=== PATIENT | male | born 1945 ===

== ENCOUNTER → 2018-04-18 | Outpatient (REF) | payer MEDICARE, OTHER ==
[2018-04-18 18:55] LABS: TOTAL PROTEIN,RANDOM URINE 127.3 MG/DL (0.0-12.0); URINE TOTAL PROTEIN 127.3 MG/DL (0-12)
== END ==
LOC: M LAB REF 17:10
PROVIDERS: ATTEND Internal Medicine Nephrology
DX: N18.3 Chronic kidney disease, stage 3 (moderate) (principal); R80.9 Proteinuria, unspecified